=== PATIENT | female | born 1955 | race Caucasian/White ===

== ENCOUNTER 2022-09-14 12:00 | Observation (INO) | payer MEDICARE ==
[2022-09-14 13:05] LABS: #Eosinphils 0.2 thou/uL (0.0-0.7); #Lymphocytes 1.2 thou/uL (1.20-3.40); #Monocytes 0.7 thou/uL (0.11-0.59); %Basophils 0.7 % (0.0-1.0); %Eosinophils 3.6 % (0.0-10.0); %Lymphocytes 19.8 % (21.0-51.0); Mean Corpuscular HGB CONC 33.9 g/dL (32.0-36.0); Mean Corpuscular Volume 97.4 fl (78.0-98.0); Mean Platelet Volume 8.2 fL (7.4-10.4); Platelet Count 149 thou/uL (130-400); RBC Distribution Width 12.2 % (11.5-14.5); Red Blood Cell (RBC) Count 4.54 mill/uL (4.20-5.40); White Blood Cell (WBC) Count 6.1 thou/uL (4.8-10.8)
[2022-09-14 13:29] LABS: ALT (SGPT) 30 U/L (8-55); AST (SGOT) 27 U/L (5-34); Albumin 3.6 g/dL (3.4-4.8); Alkaline Phosphatase 90 U/L (40-110); Anion Gap 11 mmol/L (10-20); BUN (Urea Nitrogen) 13 mg/dL (9.8-20.1); Bilirubin, Total 1.3 mg/dL (0.2-1.2); Calc. Creatinine Clearance 0 mL/min (70-130); Calcium 9.7 mg/dL (7.8-10.44); Carbon Dioxide 25 mmol/L (23-31); Chloride 107 mmol/L (98-107); Estimated GFR 95; Globulin 3.2 g/dL (2.4-3.5); Glucose 102 mg/dL (80-115); Potassium 4.5 mmol/L (3.5-5.1); Protein, Total 6.8 g/dL (5.8-8.1); Sodium 138 mmol/L (136-145)
[2022-09-14] MEDS ORDERED: Magnesium 2 GM/50 ML BAG (IN WATER) ONE (13:47)
[2022-09-14] MEDS ORDERED: predniSONE 20 MG TAB ONE (14:42)
[2022-09-14] MEDS ORDERED: Nitroglycerin 2% Ointment 1 INCH/1 GM Packet ONE (14:42)
[2022-09-14] MEDS ORDERED: Furosemide 40 MG/4 ML VIAL ONE (14:42)
[2022-09-14] MEDS ORDERED: Benzonatate 100 MG CAP PO PRN (15:24)
[2022-09-14] MEDS ORDERED: Acetaminophen 325 MG TAB PO PRN (15:25)
[2022-09-14] MEDS ORDERED: Senokot S 8.6-50 MG TAB PO PRN (15:25)
[2022-09-14] MEDS ORDERED: Ondansetron ODT 4 MG TAB PO PRN (15:25)
[2022-09-14] MEDS ORDERED: Ondansetron PF 4 MG/2 ML Vial IVP PRN (15:25)
[2022-09-14 16:11] LABS: Troponin I 0.011 ng/mL (< 0.028)
[2022-09-14 16:56] VITALS: BMI 41.1
[2022-09-14 18:57] LABS: SARS-CoV-2 NAA Rapid Test Not Detected (NotDetected)
[2022-09-14 19:10] LABS: Troponin I Less than 0.010 ng/mL (< 0.028)
[2022-09-14] MEDS: Enoxaparin Sodium 40 MG/0.4 ML SYRINGE SC SCH (20:29)
[2022-09-15 05:37] LABS: Band 4 % (5-11); Hemoglobin 14.5 g/dL (12.0-16.0); Lymphocytes 6 % (21-51); MDiff Complete? YES; Mean Corpuscular HGB CONC 33.3 g/dL (32.0-36.0); Mean Corpuscular Hemoglobin 32.8 pg (27.0-31.0); Mean Corpuscular Volume 98.5 fl (78.0-98.0); Mean Platelet Volume 9.1 fL (7.4-10.4); Monocytes 8 % (0-10); Neutrophil 82 % (42-75); Platelet Count 175 thou/uL (130-400); RBC Distribution Width 12.3 % (11.5-14.5); Red Blood Cell (RBC) Count 4.44 mill/uL (4.20-5.40); White Blood Cell (WBC) Count 8.7 thou/uL (4.8-10.8)
[2022-09-15] MEDS: Furosemide 40 MG/4 ML VIAL SLOW IVP SCH ×2 (05:45→14:34)
[2022-09-15] MEDS ORDERED: FLU VACC QS2022-23(6MOS UP)/PF 60 MCG/0.5 ML SYRINGE IM ONE (06:00)
[2022-09-15] MEDS ORDERED: predniSONE 20 MG TAB PO SCH (08:00)
[2022-09-15 08:12] LABS: Anion Gap 14 mmol/L (10-20); BUN (Urea Nitrogen) 13 mg/dL (9.8-20.1); Calc. Creatinine Clearance 179 mL/min (70-130); Calcium 9.5 mg/dL (7.8-10.44); Carbon Dioxide 24 mmol/L (23-31); Chloride 103 mmol/L (98-107); Estimated GFR 96; Glucose 90 mg/dL (80-115); Potassium 3.6 mmol/L (3.5-5.1); Sodium 137 mmol/L (136-145)
[2022-09-15] MEDS: predniSONE 20 MG TAB PO SCH (09:28)
[2022-09-15] MEDS: Enoxaparin Sodium 40 MG/0.4 ML SYRINGE SC SCH (20:17)
[2022-09-16 05:19] LABS: #Basophils 0.1 thou/uL (0.0-0.2); #Eosinphils 0.3 thou/uL (0.0-0.7); #Neutrophils 6.7 thou/uL (1.40-6.50); %Basophils 0.6 % (0.0-1.0); %Eosinophils 3.1 % (0.0-10.0); %Lymphocytes 19.8 % (21.0-51.0); %Monocytes 9.8 % (0.0-10.0); %Neutrophils 66.7 % (42.0-75.0); Hemoglobin 14.7 g/dL (12.0-16.0); Mean Corpuscular HGB CONC 34.4 g/dL (32.0-36.0); Mean Corpuscular Hemoglobin 33.3 pg (27.0-31.0); Mean Corpuscular Volume 96.7 fl (78.0-98.0); Mean Platelet Volume 9.1 fL (7.4-10.4); Platelet Count 158 thou/uL (130-400); RBC Distribution Width 12.4 % (11.5-14.5); Red Blood Cell (RBC) Count 4.41 mill/uL (4.20-5.40)
[2022-09-16] MEDS: Furosemide 40 MG/4 ML VIAL SLOW IVP SCH ×2 (05:52→14:02)
[2022-09-16 05:55] LABS: ALT (SGPT) 27 U/L (8-55); AST (SGOT) 38 U/L (5-34); Albumin 3.6 g/dL (3.4-4.8); Alkaline Phosphatase 77 U/L (40-110); Anion Gap 16 mmol/L (10-20); BUN (Urea Nitrogen) 18 mg/dL (9.8-20.1); Bilirubin, Total 1.2 mg/dL (0.2-1.2); Calc. Creatinine Clearance 173 mL/min (70-130); Calcium 9.3 mg/dL (7.8-10.44); Carbon Dioxide 22 mmol/L (23-31); Chloride 104 mmol/L (98-107); Estimated GFR 95; Globulin 3.8 g/dL (2.4-3.5); Glucose 102 mg/dL (80-115); Potassium 4.1 mmol/L (3.5-5.1); Protein, Total 7.4 g/dL (5.8-8.1); Sodium 138 mmol/L (136-145)
[2022-09-16] MEDS: predniSONE 20 MG TAB PO SCH (09:24)
[2022-09-16 16:09] VITALS: BP 139/74; TEMP 97.5
== END 2022-09-16 17:30 | disposition home or self-care (01) ==
LOC: ERS 12:00 → 2SW 14:26
PROVIDERS: ADMIT Internal Medicine; ATTEND Internal Medicine
DX: J44.1 Chronic obstructive pulmonary disease with (acute) exacerbation (principal); I16.0 Hypertensive urgency; I89.0 Lymphedema, not elsewhere classified; E80.6 Other disorders of bilirubin metabolism; I10 Essential (primary) hypertension; J98.11 Atelectasis; J90 Pleural effusion, not elsewhere classified; I34.0 Nonrheumatic mitral (valve) insufficiency; I47.20 Ventricular tachycardia, unspecified; E66.01 Morbid (severe) obesity due to excess calories; Z68.41 Body mass index [BMI] 40.0-44.9, adult; Z87.891 Personal history of nicotine dependence; Z79.899 Other long term (current) drug therapy; Z88.0 Allergy status to penicillin; Z20.822 Contact with and (suspected) exposure to COVID-19
CPT/HCPCS: 0240U; 71045; 80048; 80053 ×2; 83735; 83880; 84484 ×2; 85025 ×3; 85379; 93005; 93306; 93971; 94640 ×3; 94760; 96365; 96375; 99285; 36415; 96372; 96376; G0378; J1650; J1940; J3475; J7512; J7620